=== PATIENT | male | born 1950 | race Caucasian/White ===

== ENCOUNTER → 2017-02-16 | Outpatient (CLI) | payer MEDICAID, MEDICARE ==
[~2017-02-16] MED LIST: ALBU8.5H4 IH; ASP81CT PO; ATRV10T PO; BUDE6HFA IH; CALC-697 PO; CALCIUM PO; CLCX200C PO; DOXA1TAB PO; DXZS2T PO; FENO48TA PO; GFN600TCR PO; MAG PO; MAGN100T3 PO; OMEG1CAP51 PO; RNT150T PO; VARE1TAB17 PO; VENTOLIN HFA 90 MCG PO; VENTOLIN HFA PO; VITA1CAP59 PO; ZINC PO; ZINC100T3 PO
--- NOTE | 2017-02-16 13:40 | Diagnostic Imaging Report ---
EXAMINATION: Low dose CT chest screening for lung carcinoma. INDICATION: 100 pack year smoking history. FINDINGS: Routine images of the thorax were obtained using low dose lung cancer screening protocol. The previous CT chest exam of 04/11/2013 noted scar formation in the left apex but failed to show any sign of a parenchymal lung mass. On this study, the scar formation on the left apex is again evident and no different. There are also a few small bulla/blebs in each lung apex medially. There are mild emphysematous changes involving both lungs as well. There is still no discrete parenchymal lung mass visualized. There is no sign of failure, pneumonia or pleural effusion to suggest an acute abnormality. The heart size is within normal limits. There are no coronary artery calcifications evident. The aorta is not abnormally dilated. There is no obvious mediastinal or hilar adenopathy. Thyroid gland was not well visualized. The sections through the upper abdomen failed to show any sign of an acute abnormality. Bone windows are unremarkable for fracture or for destructive lesion. IMPRESSION: 1. There is no parenchymal lung mass identified. A followup low-dose CT screening chest exam in one year would be recommended for continued evaluation. 2. The scar formation in the left apex seen previously is again evident. There is no acute cardiopulmonary abnormality noted. LungRads Category 1. Dictated by: Dictated on workstation # [id number]
== END ==
LOC: RAD 11:28
PROVIDERS: ATTEND Nurse Practitioner Family
DX: Z12.2 Encounter for screening for malignant neoplasm of respiratory organs (principal); F17.210 Nicotine dependence, cigarettes, uncomplicated

== ENCOUNTER → 2020-07-15 | Outpatient (CLI) | payer MEDICARE ==
[~2020-07-15] MED LIST changes: +RT-ALBUTEROL SULF 2.5 MG/3 ML PRE-MIX VIAL INH ONE
== END ==
LOC: RT 12:36
PROVIDERS: ATTEND Nurse Practitioner Family
DX: J44.9 Chronic obstructive pulmonary disease, unspecified (principal)
CPT/HCPCS: 94060; 94726; 94729

== ENCOUNTER → 2020-07-24 | Outpatient (CLI) | payer MEDICARE ==
[~2020-07-24] MED LIST changes: -RT-ALBUTEROL SULF 2.5 MG/3 ML PRE-MIX VIAL INH ONE
--- NOTE | 2020-07-24 15:32 | Diagnostic Imaging Report ---
EXAMINATION: CT Lung Screening. INDICATION: 54 pack year smoking history. Low dose CT screening. TECHNIQUE: Noncontrast, low-dose CT imaging performed according to the lung cancer screening protocol. Auto Exposure Controls were utilize during the CT exam to meet ALARA standards for radiation dose reduction. COMPARISON: 03/24/2019 and 11/27/2012. FINDINGS: Chronic biapical pleural-parenchymal scarring is stable. Peripheral scattered air cysts bilaterally, greatest in the upper lobes and pulmonary apices, are chronic. Air trapping is symmetric and chronic. No suspicious lung mass. The thoracic aorta is normal in caliber. No evidence for adenopathy. No effusion or pneumonia. IMPRESSION: Stable benign findings. LUNG-RADS CATEGORY:Category 2. MODIFIER:None. OTHER SIGNIFICANT FINDINGS:Chronic areas of scarring and sequelae of COPD. Dictated by: Dictated on workstation # [id number]
== END ==
LOC: RAD 14:45
PROVIDERS: ATTEND Nurse Practitioner Family
DX: Z12.2 Encounter for screening for malignant neoplasm of respiratory organs (principal); J44.9 Chronic obstructive pulmonary disease, unspecified; F17.210 Nicotine dependence, cigarettes, uncomplicated
CPT/HCPCS: 71271

== ENCOUNTER → 2020-08-14 | Outpatient (CLI) | payer MEDICARE | LOC: CARD 12:29 | PROVIDERS: ATTEND Internal Medicine Cardiovascular Disease | DX: I34.0 Nonrheumatic mitral (valve) insufficiency (principal); I10 Essential (primary) hypertension; E78.5 Hyperlipidemia, unspecified | CPT/HCPCS: 93306 ==

== ENCOUNTER → 2020-08-28 | Outpatient (CLI) | payer MEDICARE ==
[~2020-08-28] VITALS: Ht 177 cm; Wt 77.0 kg
[~2020-08-28] MED LIST changes: +CATHETER FLUSH 10 ML SYR IV PRN; +REGADENOSON 0.4 MG/5 ML SYR (LEXISCAN) IV ONE
[2020-08-28 09:21] VITALS: BP 105/78
--- NOTE | 2020-08-28 14:02 | Cardiology Stress Test Report ---
Stress Test Report Date of Procedure/Referring: Date of Procedure: Aug 28, 2020 PCP Luba Steinberg MD Admitting Physician Center/[facility] Indications: Hypertension Baseline Heart Rate: 52 Baseline Blood Pressure: Blood Pressure Systolic: 105 Blood Pressure Diastolic: 78 Baseline Vitals Vital Signs Date Time Temp Pulse Resp B/P (MAP) Pulse Ox O2 Delivery O2 Flow Rate FiO2 08/28/20 09:21 93 22 105/78 (87) 96 Room Air Baseline EKG: Baseline EKG: sinus bradycardia Summary After explaining the procedure to the patient, he signed a consent and then brought to the stress nuclear laboratory. Patient received 0.4 mg Lexiscan for stress test, ECG, heart rate and blood pressure were monitored continuously. Resting and stress dose of radio tracer were injected, imaging was acquired and reviewed in short axis, horizontal long axis and vertical long axis views. TID: 1.04 SSS: 3 SDS: 1 EF: 59 1. Patient tolerated Lexiscan well 2. This line sinus bradycardia persisted during test 3. Diaphragmatic attenuation with fixed defect involving the mid to apical inferior wall, subtle reversibility, no significant ischemia or infarction 4. Normal left ventricular size, normal contractility, EF 59 percent LUBA STEINBERG MD Aug 28, 2020 14:02
== END ==
LOC: CARD 07:30
PROVIDERS: ATTEND Internal Medicine Cardiovascular Disease
DX: R00.2 Palpitations (principal); I10 Essential (primary) hypertension; R06.02 Shortness of breath; E78.5 Hyperlipidemia, unspecified
CPT/HCPCS: 78452; 93017; A9502

== ENCOUNTER 2020-10-24 22:06 | Emergency (ER) | payer MEDICARE ==
[~2020-10-24] VITALS: Ht 177.8 cm; Wt 77.0 kg
[~2020-10-24 22:06] MED LIST changes: -CATHETER FLUSH 10 ML SYR IV PRN; -REGADENOSON 0.4 MG/5 ML SYR (LEXISCAN) IV ONE
[2020-10-24] MEDS ORDERED: fentaNYL INJ 100 MCG/2 ML AMP IVP ONE (22:30)
[2020-10-24] MEDS ORDERED: NS IV 1000 ML 1,000 ML IV SCH (22:30)
[2020-10-24] MEDS ORDERED: ONDANSETRON 4 MG/2 ML (SDV) Z0FRAN IVP ONE (22:30)
--- NOTE | 2020-10-24 22:31 | ED Abdominal Pain ---
General Stated Complaint: L SIDE ABD PAIN/ N/V Source of Information: Patient Exam Limitations: No Limitations History of Present Illness Date Seen by Provider: Oct 24, 2020 Time Seen by Provider: 22:20 Initial Comments Patient presents ER by private conveyance with chief complaint about 7:00 tonight he started having some severe left lower quadrant abdominal pain. He states the pain started in his left lower back and radiated around to his left groin. He denies a history of kidney stones. He says it sharp, worse with movement and 8 out of 10. He tried to have a couple bowel movements today and it did not get any better. He has had a bowel movement earlier today. He is not vomiting but he does have nausea. No fevers or chills. Over the past couple weeks he has had some upper respiratory symptoms of cough runny nose watery eyes which she attributed to allergies because his cough is not productive of green sputum. He has had no fever. He does have a history of emphysema. He has been worked up and has an appointment in 3 months to establish care with Dr. Steinberg, cardiology. He sees Yahaira at [facility]. He also sees pulmonology here at the hospital. He still smokes. He denies a history of diverticulitis. He has not taken anything for pain. Allergies and Home Medications Allergies Uncoded Allergies: ANTIDEPRESSANT (Allergy, Unknown, NAME UNKNOWN, 07/20/11) Home Medications Albuterol Sulfate 8.5 Gm Hfa.aer.ad, 2 PUFF IH Q4H PRN, (Reported) PRN SOB Aspirin 81 Mg Chew, 81 MG PO DAILY, (Reported) Atorvastatin Calcium 10 Mg Tablet, 10 MG PO DAILY, (Reported) Budesonide/Formoterol Fumarate 10.2 Gm Hfa.aer.ad, 2 PUFF IH BID, (Reported) Celecoxib 200 Mg Capsule, 200 MG PO DAILY, (Reported) Cephalexin 500 Mg Tablet, 500 MG PO BID Prescribed by: ESTRELLITA HOFF on 10/25/2010 Ondansetron 4 Mg Tab.rapdis, 4 MG PO Q6H PRN for NAUSEA/VOMITING Prescribed by: ESTRELLITA HOFF on 10/25/2010 Oxycodone HCl/Acetaminophen 1 Each Tablet, 1-2 EACH PO Q4H PRN for PAIN-MODERATE Prescribed by: ESTRELLITA HOFF on 10/25/20 002 Patient Home Medication List Home Medication List Reviewed: Yes Review of Systems Review of Systems Constitutional: No chills, No diaphoresis EENTM: No Blurred Vision, No Double Vision Respiratory: Denies Cough, Denies Shortness of Air Cardiovascular: Denies Chest Pain, Denies Lightheadedness Gastrointestinal: Denies Abdominal Pain, Denies Constipated, Denies Diarrhea Genitourinary: Denies Burning, Denies Discharge Musculoskeletal: No back pain, No joint pain Skin: No pruritus, No rash Psychiatric/Neurological: Denies Anxiety, Denies Depressed All Other Systems Reviewed Negative Unless Noted: Yes Past Zubsycn-Ajdnyc-Iifsuw Hx Patient Social History Alcohol Use: Denies Use Smoking Status: Never a Smoker Physical Exam Vital Signs Capillary Refill : Height/Weight/BMI Height: '" Weight: lbs. oz. kg; 24.57 BMI Method: General Appearance: WD/WN, moderate distress HEENT: PERRL/EOMI, pharynx normal Neck: full range of motion, normal inspection Respiratory: chest non-tender, lungs clear, normal breath sounds, no respiratory distress, no accessory muscle use Cardiovascular: normal peripheral pulses, regular rate, rhythm Peripheral Pulses: 2+ Radial Pulses (R), 2+ Radial Pulses (L) Gastrointestinal: normal bowel sounds, soft Neurologic/Psychiatric: alert, normal mood/affect, oriented x 3 Skin: normal color, warm/dry Progress/Results/Core Measures Results/Orders Lab Results Laboratory Tests Test 10/24/20 22:25 10/24/20 22:27 Range/Units White Blood Count 16.7 H 4.3-11.0 10^3/uL Red Blood Count 5.48 4.30-5.52 10^6/uL Hemoglobin 16.8 13.3-17.7 g/dL Hematocrit 50 40-54 % Mean Corpuscular Volume 91 80-99 fL Mean Corpuscular Hemoglobin 31 25-34 pg Mean Corpuscular Hemoglobin Concent 34 32-36 g/dL Red Cell Distribution Width 13.6 10.0-14.5 % Platelet Count 324 130-400 10^3/uL Mean Platelet Volume 9.9 9.0-12.2 fL Immature Granulocyte % (Auto) 0 % Neutrophils (%) (Auto) 60 42-75 % Lymphocytes (%) (Auto) 28 12-44 % Monocytes (%) (Auto) 7 0-12 % Eosinophils (%) (Auto) 4 0-10 % Basophils (%) (Auto) 1 0-10 % Neutrophils # (Auto) 10.1 H 1.8-7.8 10^3/uL Lymphocytes # (Auto) 4.6 H 1.0-4.0 10^3/uL Monocytes # (Auto) 1.2 H 0.0-1.0 10^3/uL Eosinophils # (Auto) 0.6 H 0.0-0.3 10^3/uL Basophils # (Auto) 0.2 H 0.0-0.1 10^3/uL Immature Granulocyte # (Auto) 0.1 0.0-0.1 10^3/uL Neutrophils % (Manual) 66 % Lymphocytes % (Manual) 21 % Monocytes % (Manual) 8 % Eosinophils % (Manual) 1 % Basophils % (Manual) 0 % Band Neutrophils 0 % Reactive Lymphocytes 4 % Toxic Granulation 1+ Sodium Level 138 135-145 MMOL/L Potassium Level 4.5 3.6-5.0 MMOL/L Chloride Level 105 98-107 MMOL/L Carbon Dioxide Level 17 L 21-32 MMOL/L Anion Gap 16 H 5-14 MMOL/L Blood Urea Nitrogen 20 H 7-18 MG/DL Creatinine 1.53 H 0.60-1.30 MG/DL Estimat Glomerular Filtration Rate 45 BUN/Creatinine Ratio 13 Glucose Level 137 H 70-105 MG/DL Calcium Level 9.9 8.5-10.1 MG/DL Corrected Calcium 9.7 8.5-10.1 MG/DL Total Bilirubin 0.5 0.1-1.0 MG/DL Aspartate Amino Transf (AST/SGOT) 16 5-34 U/L Alanine Aminotransferase (ALT/SGPT) 15 0-55 U/L Alkaline Phosphatase 85 40-136 U/L C-Reactive Protein High Sensitivity 0.66 H 0.00-0.50 MG/DL Total Protein 8.2 6.4-8.2 GM/DL Albumin 4.3 3.2-4.5 GM/DL Lipase 16 8-78 U/L My Orders Orders - ESTRELLITA HOFF Ed Iv/Invasive Line Start (10/24/20 22:27) Ns Iv 1000 Ml (Sodium Chloride 0.9%) (10/24/20 22:30) Fentanyl Inj (Sublimaze Injection) (10/24/20 22:30) Ondansetron Injection (Zofran Injectio (10/24/20 22:30) Cbc With Automated Diff (10/24/20:) Comprehensive Metabolic Panel (10/24/20:) Hs C Reactive Protein (10/24/20:) Lipase (10/24/20:) Manual Differential (10/24/20:25) Ct Abdomen/Pelvis Wo (10/24/20 23:11) Morphine Injection (Morphine Injection (10/24/20 23:14) Morphine Injection (Morphine Injection (10/24/20 23:10) Hydromorphone Injection (Dilaudid Inject (10/25/20 00:00) Ceftriaxone For Iv Use (Rocephin For I (10/25/20 00:15) Rx-Hydrocodone/Apap 5-325 Mg (Rx-Vicodin (10/25/20 00:15) Rx-Ondansetron Po (Rx-Zofran Po) (10/25/20 00:13) Rx-Oxycodone/Apap 5-325 Mg (Rx-Percocet (10/25/20 00:30) Medications Given in ED Current Medications Medications Dose Ordered Sig/Gurpreet Route Start Time Stop Time Status Last Admin Dose Admin Ceftriaxone Sodium 1000 mg/ Sterile Water 10 ml @ 200 mls/hr ONCE ONCE IV 10/25/20 00:15 10/25/20 00:17 DC 10/25/20 00:10 200 MLS/HR Fentanyl Citrate 50 mcg ONCE ONCE IVP 10/24/20 22:30 10/24/20 22:31 DC 10/24/20 22:37 50 MCG Hydromorphone HCl 0.5 mg ONCE ONCE IV 10/25/20 00:00 10/25/20 00:01 DC 10/25/20 00:09 0.5 MG Ondansetron HCl 4 mg ONCE ONCE IVP 10/24/20 22:30 10/24/20 22:31 DC 10/24/20 22:39 4 MG Progress Progress Note #1: Time: 00:04 Progress Note The patient only received minimal relief of his pain from fentanyl so 4 mg morphine were ordered which only gave him a brief relief of his pain. He is still writhing like a kidney stone so CT without IV contrast was ordered and Dilaudid half milligram was ordered. The patient is already on Flomax. We will give him some Rocephin IV. Progress Note #2: Time: 00:31 Progress Note Pain is significantly improving with Dilaudid. Diagnostic Imaging Diagonstic Imaging: CT Plain Films/CT/US/NM/MRI: abdomen, pelvis Comments Diverticulosis without diverticulitis. 2 to 3 mm ureteral stone at the left UVJ with associated hydronephrosis and hydroureter. Reviewed: Reviewed by Me Departure Impression Primary Impression: Ureteral calculus, left Disposition: HOME, SELF-CARE Condition: Stable Departure-Patient Inst. Decision time for Depature: 00:07 Referrals: [facility] (PCP) Primary Care Physician JENARO MAN APRN (Family) Primary Care Physician BROOKS LI MD Patient Instructions: Kidney Stones (DC), How to Strain Your Urine Add. Discharge Instructions: Strain your urine to try and catch the stone. After the stone passes he will typically have resolution of symptoms in about 1 to 2 days. Ibuprofen 800 mg every 8 hours as necessary if you can tolerate it. Oxycodone 1 to 2 tablets every 4 hours as necessary for severe pain. Oxycodone will cause drowsiness and constipation and you should take MiraLAX to stay regular. Continue taking your other medications as prescribed. Keflex/cephalexin 500 mg twice a day for the next week to treat infection. If you not seeing resolution of your symptoms by early next week then you should call Dr. Li urology and make plans to follow-up with him. Scripts Oxycodone HCl/Acetaminophen (Oxycodone-Acetaminophen 5-325) 1 Each Tablet 1-2 EACH PO Q4H PRN for PAIN-MODERATE MDD 6 for 3 Days, #24 TAB 0 Refills Prov: ESTRELLITA HOFF 10/25/20 Cephalexin (Cephalexin) 500 Mg Tablet 500 MG PO BID for 7 Days, #14 TAB 0 Refills Prov: ESTRELLITA HOFF 10/25/20 Ondansetron (Ondansetron Odt) 4 Mg Tab.rapdis 4 MG PO Q6H PRN for NAUSEA/VOMITING, #8 TAB 0 Refills Prov: ESTRELLITA HOFF 10/25/20 Copy Copies To 1: BROOKS LI MD, TITUS J Oct 24, 2020 22:31
[2020-10-24 22:33] LABS: BASOPHILS # (AUTO) 0.2 10^3/uL (0.0-0.1); BASOPHILS % (AUTO) 1 % (0-10); EOSINOPHILS # (AUTO) 0.6 10^3/uL (0.0-0.3); EOSINOPHILS % (AUTO) 4 % (0-10); HEMATOCRIT 50 % (40-54); HEMOGLOBIN 16.8 g/dL (13.3-17.7); LYMPHOCYTES # (AUTO) 4.6 10^3/uL (1.0-4.0); LYMPHOCYTES % (AUTO) 28 % (12-44); MEAN CORPUSCULAR HEMOGLOBIN 31 pg (25-34); MEAN CORPUSCULAR HGB CONC 34 g/dL (32-36); MEAN CORPUSCULAR VOLUME 91 fL (80-99); MEAN PLATELET VOLUME 9.9 fL (9.0-12.2); MONOCYTES # (AUTO) 1.2 10^3/uL (0.0-1.0); MONOCYTES % (AUTO) 7 % (0-12); NEUTROPHILS # (AUTO) 10.1 10^3/uL (1.8-7.8); NEUTROPHILS % (AUTO) 60 % (42-75); PLATELET COUNT 324 10^3/uL (130-400); WHITE BLOOD COUNT 16.7 10^3/uL (4.3-11.0)
[2020-10-24] MEDS ORDERED: MTP25TSR (22:43)
[2020-10-24] MEDS ORDERED: TIOT18CA2 (22:43)
[2020-10-24] MEDS ORDERED: FLUT1DIS26 (22:43)
[2020-10-24 22:55] LABS: ALBUMIN 4.3 GM/DL (3.2-4.5); BILIRUBIN,TOTAL 0.5 MG/DL (0.1-1.0); CALCIUM 9.9 MG/DL (8.5-10.1); CREATININE SERUM 1.53 MG/DL (0.60-1.30); POTASSIUM 4.5 MMOL/L (3.6-5.0); TOTAL PROTEIN 8.2 GM/DL (6.4-8.2)
[2020-10-24 22:57] LABS: BAND NEUTROPHILS 0 %; BASOPHILS % (MANUAL) 0 %; EOSINOPHILS % (MANUAL) 1 %; LYMPHOCYTES % (MANUAL) 21 %; MONOCYTES % (MANUAL) 8 %; NEUTROPHILS % (MANUAL) 66 %; REACTIVE LYMPHOCYTES 4 %; TOXIC GRANULATION/VACUOLAZATIO 1+
[2020-10-24] MEDS ORDERED: morphine INJ 10 MG/ML 1ML (SYR OR VIAL) ONE (23:10)
[2020-10-24] MEDS ORDERED: morphine INJ 10 MG/ML 1ML (SYR OR VIAL) IVP STA (23:14)
[2020-10-25] MEDS ORDERED: HYDROmorphone 2 MG/ML VIAL (DILAUDID) IV ONE
[2020-10-25] MEDS ORDERED: ONDA4TAB11 PO (00:11)
[2020-10-25] MEDS ORDERED: ACHD5005 PO (00:11)
[2020-10-25] MEDS ORDERED: CEPH500T PO (00:11)
[2020-10-25] MEDS ORDERED: RX-ONDANSETRON 4 MG ODT (ZOFRAN) PPK #4 PO STA (00:13)
[2020-10-25] MEDS ORDERED: RX-HYDROCODONE/APAP 5/325 MG #4 TAB PK PO PRN (00:15)
[2020-10-25] MEDS ORDERED: cefTRIAXone FOR IV USE 1,000 MG in WATER (STERILE) FOR INJECTION 10 ML IV ONE (00:15)
[2020-10-25] MEDS ORDERED: OXYC1TAB11 PO (00:28)
[2020-10-25] MEDS ORDERED: RX-OXYCODONE/APAP 5-325 MG #4 TAB PK PO PRN (00:30)
[2020-10-25 00:45] VITALS: BP 114/64
--- NOTE | 2020-10-25 06:47 | Diagnostic Imaging Report ---
CT ABDOMEN/PELVIS WO TECHNIQUE: Unenhanced CT imaging of the abdomen and pelvis was performed. 2-D reformats are created and submitted for interpretation. Automatic exposure controls were utilized to optimize patient dose. INDICATION: Left lower quadrant pain COMPARISON: None available. FINDINGS: Evaluation of the abdominal viscera is mildly limited without contrast. Lower chest: The lung bases are clear. No pericardial or pleural effusion. Peritoneum: No free intraperitoneal air or fluid. Liver and biliary system: There are few scattered cysts in the left hepatic lobe measuring up to 1 cm. No concerning focal hepatic lesion. The gallbladder is normal. No biliary duct dilation. Spleen and Pancreas: Spleen is normal. Unenhanced pancreas is grossly normal. Adrenals: Normal. tract: Punctate nonobstructing 2 mm stone in the lower pole left kidney. Additional punctate 2 mm stone in the distal left ureter with some minimal dilation of the left ureter. No right renal or ureteral stones. Urinary bladder is normally filled. Prostate is mildly enlarged with coarse central calcifications. GI tract: Stomach is decompressed. Indirect right inguinal hernia contains portions of the appendix and a loop of small bowel. No fluid within the hernia sac to indicate strangulation. No pericolonic inflammatory changes. Sigmoid colon diverticulosis without diverticulitis. No appendicitis. Vasculature and Lymph nodes: Normal caliber aorta. No abdominal or pelvic lymphadenopathy. Musculoskeletal: No concerning osseous lesion. IMPRESSION: 1. Minimal left hydroureter due to a 2 mm distal ureteral stone near the left UVJ. 2. Additional punctate 2 mm nonobstructing stone in the lower pole of the left kidney. 3. Right inguinal indirect hernia contains a loop of small bowel without features of obstruction or strangulation. 4. Findings are in agreement with the preliminary report. Dictated by: Dictated on workstation # [id number]
== END 2020-10-25 00:45 | disposition home or self-care (01) ==
LOC: EDUNIT# 22:06 → ER 22:08
DX: N13.2 Hydronephrosis with renal and ureteral calculous obstruction (principal); Z88.8 Allergy status to other drugs, medicaments and biological substances; Z79.82 Long term (current) use of aspirin
CPT/HCPCS: 36415; 74176; 80053; 83690; 85007; 85027; 86141

== ENCOUNTER → 2022-10-14 | Outpatient (CLI) | payer MEDICARE, OTHER ==
[~2022-10-14] MED LIST changes: +ACHD5005 PO; +CEPH500T PO; +FLUT1DIS26; +MTP25TSR; +ONDA4TAB11 PO; +OXYC1TAB11 PO; +TIOT18CA2
== END ==
LOC: CARD 10:27
PROVIDERS: ATTEND Internal Medicine Cardiovascular Disease
DX: I10 Essential (primary) hypertension (principal); I25.10 Atherosclerotic heart disease of native coronary artery without angina pectoris
CPT/HCPCS: 93306

== ENCOUNTER → 2022-11-04 | Outpatient (CLI) | payer MEDICARE, OTHER ==
[~2022-11-04] VITALS: Ht 177 cm; Wt 72.0 kg
[~2022-11-04] MED LIST changes: +CATHETER FLUSH 10 ML SYR IVP PRN; +REGADENOSON 0.4 MG/5 ML SYR (LEXISCAN) IV ONE
[2022-11-04 13:28] VITALS: BP 140/79
--- NOTE | 2022-11-04 15:59 | Cardiology Stress Test Report ---
Stress Test Report Date of Procedure/Referring: Date of Procedure: November 04, 2022 [facility]Replaced By [facility] Admitting Physician Admitting Physician: Attending Physician: Sobeida Colon Baseline Heart Rate: 48 Baseline Blood Pressure: Blood Pressure Systolic: 140 Blood Pressure Diastolic: 79 Baseline Vitals Vital Signs Date Time Temp Pulse Resp B/P (MAP) Pulse Ox O2 Delivery O2 Flow Rate FiO2 11/04/22 13:28 48 140/79 (99) 98 Room Air Baseline EKG: Baseline EKG: NSR Summary After explaining the procedure to the patient, he signed a consent and then brought to the stress nuclear laboratory. Patient received 0.4 mg Lexiscan for stress test, ECG, heart rate and blood pressure were monitored continuously. Resting and stress dose of radio tracer were injected, imaging was acquired and reviewed in short axis, horizontal long axis and vertical long axis views. TID: 1.1 SSS: 5 SDS: 0 EF: 57 Patient tolerated Lexiscan well Fixed defect involving the basal to mid inferior wall due to diaphragmatic attenuation, no significant ischemia or infarction on SPECT images Normal left ventricular size, ejection fraction 57% Copy Copies To 1: [facility]/LUBA DE OLIVEIRA MD November 04, 2022 15:58
== END ==
LOC: CARD 11:53
PROVIDERS: ATTEND Physician Assistant
DX: I10 Essential (primary) hypertension (principal); I25.10 Atherosclerotic heart disease of native coronary artery without angina pectoris; R07.2 Precordial pain
CPT/HCPCS: 78452; 93017; A9502